=== PATIENT | male | born 1950 | race Caucasian/White ===

== ENCOUNTER → 2020-10-03 10:20 | Outpatient (REF) | payer MEDICARE, MEDICAID, SELFPAY ==
--- NOTE | 2020-10-03 10:30 | CA_ITS ---
Transthoracic Echocardiogram Patient (Last, First, Middle): Ben Wayne A Gender: Male Date of : 1950 Age: 70 Procedure Date: 10/03/2020 Procedure Type: Transthoracic Echocardiogram Height: 160.02 cm Weight: 72.58 kg BSA: 1.76 m2 Heart Rate: bpm BP: 110 / 58 mmHg Nuclear Supervising Operator: HAILE Referring MD: Vipul Amezcua MD Symptoms: I48.19 PERSISTENT AFIB I38 VALVULAR HEART DISEASE Study Quality: Fair ECG Rhythm: Atrial Fibrillation Conclusions: - The left ventricular systolic function is low normal. The visually estimated ejection fraction is between 50-55%. - There is moderate calcification of the aortic valve. - There is mild mitral annular calcification. Findings Left Ventricle Normal left ventricular cavity size. There is normal left ventricular wall thickness. The left ventricular systolic function is low normal. The visually estimated ejection fraction is between 50-55%. There is no evidence of regional wall motion abnormalities. Diastolic function is indeterminate on the basis of available data. Right Ventricle Normal right ventricular cavity size. There is mildly decreased right ventricular systolic function. Atria Both atria are normal in size. Aortic Valve There is moderate calcification of the aortic valve. There is no aortic valve stenosis. There is no aortic valve regurgitation. Mitral Valve There is mild mitral annular calcification. There is mild mitral valve regurgitation. There is no mitral valve stenosis. Pulmonic Valve The pulmonic valve was not well visualized. Tricuspid Valve Normal tricuspid valve structure. There is mild tricuspid valve regurgitation. The pulmonary artery systolic pressure is normal. Great Vessels The aortic annulus, sinuses of valsalva, asc aorta, and aortic arch are normal in size. Venous The inferior vena cava is normal in size and collapses greater than 50% with inspiration. Pericardium/Pleural There is no evidence of pericardial effusion. Prior Study Comparison Changes noted compared to prior study dated: 10/04/2019. LVEF slightly diminished (but similar to study from 2018). Measurements M-Mode Liner Measurements Normals - Women/Men AOV Cusps: 1.20 1.5-2.6 cm/m2 2D Linear Measurements IVSd: 0.82 0.6-0.9/0.6-1.0 cm LVIDd: 5.50 3.9-5.3/4.2-5.9 cm LVIDd Index: 3.13 2.4-3.2/2.2-3.1 cm/m2 LVIDs: 3.41 2.0-3.6 cm LVPWd: 0.83 0.7-1.1 cm Ao Root: 3.40 2.1-3.5 cm LA Diam: 5.20 2.7-3.8/3.0-4.0 cm LAIDs Index: 2.95 1.5-2.3 cm/m2 LV Mass: 208.07 67-162/88-224 g LV Mass Index: 118.22 43-95/49-115 g/m2 LVOT Diam: 2.30 3.0+(-)1.3 cm 2D Systolic Function EF 4C: 29.20 >55% EF 2C: 52.00 >55% Mitral Valve MV Pk E: 1.22 MV Decel Time: 164.00 PHT: 48.00 MVA PHT: 4.58 Decel Hendry: 7.48 Aortic Valve AoV Pk Demian: 1.61 AoV Mn Demian: 1.22 AoV VTI: 0.35 AoV Pk Grad: 10.00 Aov Mn Grad: 7.00 ESPINOZA Cont.VTI: 1.25 LVOT LVOT Pk Demian: 0.58 LVOT Mn Demian: 0.42 LVOT VTI: 0.11 LVOT Pk Grad: 1.00 LVOT Mn Grad: 1.00 LVOT Diam: 2.30 LVOT Area: 4.15 Diastolic Function MV Pk E: 1.22 Tricuspid Valve TR Pk Demian: 2.39 TR Pk Grad: 23.00 RA Press: 3.00 RVSP: 26.00 Great Vessels Aorta Ao Root-2D: 3.40 2.0-3.7 cm Ao Asc: 3.50 2.1-3.4 cm Ao Arch: 2.80 Pulmonary Valve PV Pk Demian: 0.87 Peak PV Grad: 3.00 Updated in Other Vendor System with Status of Final Vipul Amezcua MD electronically signed on 10/03/2020 3:30:41 PM with status of Final
--- NOTE | 2020-10-03 11:30 | ECG_ITS ---
Hook-up date: 2020-10-03 11:39:00 Duration: 25:24:00 Test Indications: PERSISTANT AFIB Medications: [id number] QRS complexes 346 Ventricular ectopics which represent <1 % of total QRS comp. * Supraventricular ectopics which represent % of total QRS comp. * Paced QRS complexs which represent % of total QRS comp. VENTRICULAR ECTOPY 344 Isolated 0 Bigeminal Cycles 1 Couplets 0 Runs 0 Beats in Runs * Beats LONGEST at * BPM at :: -- * Beats FASTEST at * BPM at :: -- SUPRAVENTRICULAR ECTOPY * Isolated * Couplets * Runs * Beats in Runs * Beats LONGEST at * BPM at :: -- * Beats FASTEST at * BPM at :: -- HEART RATES 46 MIN at 06:18:52 2020-10-04 82 AVG 183 MAX at 10:10:35 2020-10-04 LONGEST RR 2.1200 secs at 05:33:08 2020-10-04 S-T LEVELS Channel 1 - 128 mm at 11:39:00 2020-10-03 - 128 mm at 11:39:00 2020-10-03 Channel 2 - 128 mm at 11:39:00 2020-10-03 - 128 mm at 11:39:00 2020-10-03 Channel 3 - 128 mm at 03:05:81 -- - 128 mm at 03:05:81 Underlying rhythm is atrial fibrillation; Average rate of 82/min; range 46-183/min; About 19% of the time, rate >100/min; No significant bradycardia; Rare PVCs; Overall, there is a tendency for tachycardia; Patient did not report any symptoms in the diary Referred By: Mary Chaney Overread By: MARY CHANEY
== END ==
LOC: HO.CARD 10:20
PROVIDERS: PCP Internal Medicine; Visit Provider Internal Medicine
DX: I48.19 Other persistent atrial fibrillation (principal); I38 Endocarditis, valve unspecified
CPT/HCPCS: 93225; 93226; 93306

== ENCOUNTER → 2020-10-26 08:46 | Outpatient (BNVA) | payer MEDICARE, MEDICAID, SELFPAY | PROVIDERS: PCP Internal Medicine; Visit Provider Internal Medicine | DX: I48.19 Other persistent atrial fibrillation (principal); I35.9 Nonrheumatic aortic valve disorder, unspecified | CPT/HCPCS: 93005; 99212 ==